=== PATIENT | female | born 1985 | race Caucasian/White ===

== ENCOUNTER 2016-09-09 20:42 | Emergency (ER) | payer OTHER ==
[~2016-09-09] VITALS: Ht 165.1 cm; Wt 100.0 kg
[~2016-09-09 20:42] MED LIST: CITALOPRAM HBR20 MG PO; PERCOCET 5/31 TABLET PO; TRAMADOL HCL50 MG PO; ZOFRAN4 MG PO
[2016-09-09 21:20] LABS: HEMATOCRIT 39.5 % (36.0-46.0); MCH 30.2 PG (29.0-34.0); MCHC 34.4 G/DL (30.0-36.0); MCV 87.6 FL (83-99); PLATELET COUNT 224 K/uL (156-360); RBC DIS.WIDTH-CV 12.4 % (11.8-14.6); RBC DIS.WIDTH-SD 39.7 % (39-53); RED BLOOD COUNT 4.51 M/uL (3.80-5.20); WHITE BLOOD COUNT 8.8 K/uL (4.1-10.2)
[2016-09-09 21:28] LABS: CHLORIDE 104 mEq/L (99-109); POTASSIUM 4.2 mEq/L (3.7-5.4); SODIUM 140 mEq/L (136-147)
[2016-09-09 21:29] LABS: GLUCOSE 84 mg/dL (70-99)
[2016-09-09 21:31] LABS: ANION GAP 9 MEQ/L (2-14)
[2016-09-09 21:33] LABS: GFR ESTIMATE (CALCULATED) > 59 mL/min/; SERUM ETHYL ALCOHOL < 10 mg/dL
[2016-09-09 21:34] LABS: UREA NITROGEN (BUN) 11 mg/dL (9-23)
[2016-09-09 22:04] LABS: ADD MEDTOX COMMENT Y; AMPHETAMINE NEGATIVE (500 ng/mL); BARBITURATES NEGATIVE (200 ng/mL); BENZODIAZEPINES NEGATIVE (150 ng/mL); COCAINE NEGATIVE (150 ng/mL); INTERNAL CONTROLS VALID? YES; METHADONE NEGATIVE (200 ng/mL); METHAMPHETAMINE NEGATIVE (500 ng/mL); OPIATES (MORPHINE) PRESUMPTIVE POSITIVE (100 ng/mL); OXYCODONE NEGATIVE (100 ng/mL); PHENCYCLIDINE NEGATIVE (25 ng/mL); PROPOXYPHENE NEGATIVE (300 ng/mL); THC CANNABINOIDS NEGATIVE (50 ng/mL); TRICYCLIC ANTIDEPRESSANTS NEGATIVE (300 ng/mL)
[2016-09-09 22:05] LABS: QUANTITATIVE HCG < 4.0 MIU/ML
[2016-09-09 22:20] LABS: OPIATES QUANTITATIVE VALUE 0 NG/ML
[2016-09-09 22:42] VITALS: BP 145/85
== END 2016-09-09 22:44 | disposition home or self-care (01) ==
LOC: EME 20:42
DX: F32.9 Major depressive disorder, single episode, unspecified (principal); Z63.0 Problems in relationship with spouse or partner; Z56.89 Other problems related to employment; Z04.6 Encounter for general psychiatric examination, requested by authority
CPT/HCPCS: 80048; 84702; 84999; 85027; 90837; 99281; 99285; G0480

== ENCOUNTER 2017-09-23 23:18 | Emergency (ER) | payer OTHER ==
[~2017-09-23] VITALS: Ht 165.1 cm; Wt 106.1 kg
[2017-09-24 00:09] LABS: HEMATOCRIT 36.2 % (36.0-46.0); HEMOGLOBIN 12.7 G/DL (11.9-15.5); MCHC 35.1 G/DL (30.0-36.0); MCV 85.4 FL (83-99); PLATELET COUNT 230 K/uL (156-360); RBC DIS.WIDTH-CV 12.7 % (11.8-14.6); RBC DIS.WIDTH-SD 39.4 % (39-53); RED BLOOD COUNT 4.24 M/uL (3.80-5.20); WHITE BLOOD COUNT 8.9 K/uL (4.1-10.2)
[2017-09-24 00:19] LABS: ALBUMIN 4.3 g/dL (3.2-4.8); CHLORIDE 106 mEq/L (99-109); POTASSIUM 3.4 mEq/L (3.7-5.4); SODIUM 140 mEq/L (136-147)
[2017-09-24 00:21] LABS: GLUCOSE 133 mg/dL (70-99); TOTAL PROTEIN 7.3 g/dL (6.4-8.3)
[2017-09-24 00:23] LABS: TOTAL BILIRUBIN 0.4 mg/dL (0.0-1.0)
[2017-09-24 00:25] LABS: ALKALINE PHOSPHATASE 45 IU/L (3-129); CREATININE 0.8 mg/dL (0.6-1.3); GFR ESTIMATE (CALCULATED) > 59 mL/min/
[2017-09-24 00:26] LABS: UREA NITROGEN (BUN) 8 mg/dL (9-23)
[2017-09-24 00:27] LABS: AST (GOT) 11 IU/L (2-34)
[2017-09-24 00:28] LABS: ALT (GPT) 14 IU/L (3-49)
[2017-09-24 00:29] LABS: TROP-I INTERPRETATION NEGATIVE; TROPONIN-I < 0.01 ng/mL (0.0-0.30)
[2017-09-24 00:37] LABS: QUANTITATIVE HCG 626.8 MIU/ML
[2017-09-24] MEDS ORDERED: ZOFRAN ODT4 MG PO (01:15)
[2017-09-24 01:35] VITALS: BP 104/67
== END 2017-09-24 01:36 | disposition home or self-care (01) ==
LOC: EME 23:18
DX: O21.9 Vomiting of pregnancy, unspecified (principal); R07.9 Chest pain, unspecified; R53.1 Weakness; R51 Headache; T43.226A Underdosing of selective serotonin reuptake inhibitors, initial encounter; Z91.128 Patient's intentional underdosing of medication regimen for other reason
CPT/HCPCS: 80053; 84484; 84702; 85027; 93005; 99281; 99284

== ENCOUNTER 2017-10-10 23:32 | Emergency (ER) | payer OTHER ==
[~2017-10-10] VITALS: Ht 165.1 cm; Wt 105.0 kg
[~2017-10-10 23:32] MED LIST changes: +ZOFRAN ODT4 MG PO
[2017-10-11 00:05] LABS: HEMATOCRIT 38.4 % (36.0-46.0); HEMOGLOBIN 13.6 G/DL (11.9-15.5); MCH 30.1 PG (29.0-34.0); MCHC 35.4 G/DL (30.0-36.0); PLATELET COUNT 261 K/uL (156-360); RBC DIS.WIDTH-CV 12.6 % (11.8-14.6); RBC DIS.WIDTH-SD 38.7 % (39-53); RED BLOOD COUNT 4.52 M/uL (3.80-5.20); WHITE BLOOD COUNT 13.1 K/uL (4.1-10.2)
[2017-10-11 00:20] LABS: ALBUMIN 4.6 g/dL (3.2-4.8); CHLORIDE 108 mEq/L (99-109); POTASSIUM 3.7 mEq/L (3.7-5.4); SODIUM 141 mEq/L (136-147)
[2017-10-11 00:22] LABS: GLUCOSE 83 mg/dL (70-99); TOTAL PROTEIN 8.2 g/dL (6.4-8.3)
[2017-10-11 00:24] LABS: TOTAL BILIRUBIN 0.3 mg/dL (0.0-1.0)
[2017-10-11 00:26] LABS: ALKALINE PHOSPHATASE 48 IU/L (3-129); CREATININE 0.8 mg/dL (0.6-1.3); GFR ESTIMATE (CALCULATED) > 59 mL/min/
[2017-10-11 00:27] LABS: UREA NITROGEN (BUN) 9 mg/dL (9-23)
[2017-10-11 00:28] LABS: AST (GOT) 16 IU/L (2-34)
[2017-10-11 00:29] LABS: ALT (GPT) 12 IU/L (3-49)
[2017-10-11] MEDS ORDERED: NORCO 10/3251 TABLET PO (01:57)
[2017-10-11] MEDS ORDERED: MOTRIN600 MG PO (01:57)
[2017-10-11 02:27] VITALS: BP 122/79
[2017-10-11 02:37] LABS: APPEARANCE CLOUDY ((CLEAR)); BILIRUBIN NEGATIVE; BLOOD LARGE; COLOR YELLOW ((YELLOW)); GLUCOSE (STRIP) NEGATIVE; KETONES NEGATIVE; LEUKOCYTES SMALL; NITRITE NEGATIVE; PROTEIN (STRIP) 100; SPECIFIC GRAVITY 1.029 (1.000-1.030); UROBILINOGEN 0.2 MG/DL (0.2-1.0)
[2017-10-11 03:00] LABS: BACTERIA RARE /HPF; EPITHELIAL CELLS 1+ /HPF; MUCUS NONE SEEN /LPF; RED BLOOD CELLS TNTC /HPF (0-5); UCUL ADDED? YES; WHITE BLOOD CELLS TNTC /HPF (0-5)
== END 2017-10-11 03:00 | disposition home or self-care (01) ==
LOC: EME 23:32
PROVIDERS: Physician Assistant
DX: O20.0 Threatened abortion (principal); O99.341 Other mental disorders complicating pregnancy, first trimester; F32.9 Major depressive disorder, single episode, unspecified; F41.9 Anxiety disorder, unspecified; Z3A.01 Less than 8 weeks gestation of pregnancy
CPT/HCPCS: 76801; 80053; 81003; 84702; 85027; 86850; 86900; 86901; 87086; 99281; 99284; J2790